=== PATIENT | male | born 1940 | race Caucasian/White ===

== ENCOUNTER 2018-04-11 21:10 | Emergency (ER) | payer MEDICARE, OTHER ==
[~2018-04-11] VITALS: Ht 170.2 cm; Wt 86.2 kg
[~2018-04-11 21:10] MED LIST: DPAS20025 PO; EXEN2PEN SQ; GLYB1TAB12; LOSA25TA41 PO; PIOG45TA
[2018-04-11 21:29] LABS: BASOPHILS # (AUTO) 0.1 10^3/uL (0.0-0.1); BASOPHILS % (AUTO) 1 % (0-10); EOSINOPHILS # (AUTO) 0.2 10^3/uL (0.0-0.3); EOSINOPHILS % (AUTO) 3 % (0-10); HEMATOCRIT 46 % (40-54); HEMOGLOBIN 14.9 G/DL (13.3-17.7); LYMPHOCYTES # (AUTO) 2.4 X 10^3 (1.0-4.0); LYMPHOCYTES % (AUTO) 36 % (12-44); MEAN CORPUSCULAR HEMOGLOBIN 32 PG (25-34); MEAN CORPUSCULAR HGB CONC 33 G/DL (32-36); MEAN CORPUSCULAR VOLUME 98 FL (80-99); MEAN PLATELET VOLUME 10.9 FL (7.4-10.4); MONOCYTES # (AUTO) 0.7 X 10^3 (0.0-1.0); MONOCYTES % (AUTO) 11 % (0-12); NEUTROPHILS # (AUTO) 3.3 X 10^3 (1.8-7.8); NEUTROPHILS % (AUTO) 49 % (42-75); PLATELET COUNT 173 10^3/uL (130-400); WHITE BLOOD COUNT 6.6 10^3/uL (4.3-11.0)
[2018-04-11 21:37] LABS: FIBRIN DEGRADATION PRODUCTS 1.16 UG/ML (0.00-0.49); PROTHROMBIN TIME PATIENT 12.9 SEC (12.2-14.7)
[2018-04-11 21:42] LABS: ALANINE AMINOTRANSFERASE 13 U/L (0-55); ALBUMIN 4.4 GM/DL (3.2-4.5); ALKALINE PHOSPHATASE 89 U/L (40-136); BILIRUBIN,TOTAL 0.4 MG/DL (0.1-1.0); BUN/CREATININE RATIO 12; CALCIUM 9.5 MG/DL (8.5-10.1); CARBON DIOXIDE 24 MMOL/L (21-32); CHLORIDE 99 MMOL/L (98-107); CREATININE SERUM 1.45 MG/DL (0.60-1.30); GFR ESTIMATED 47; GLUCOSE 349 MG/DL (70-105); POTASSIUM 4.4 MMOL/L (3.6-5.0); SODIUM 135 MMOL/L (135-145); TOTAL PROTEIN 7.9 GM/DL (6.4-8.2)
--- NOTE | 2018-04-11 21:43 | Diagnostic Imaging Report ---
PROCEDURE: CT head without contrast. Rule out stroke. TECHNIQUE: Multiple contiguous axial images were obtained through the brain without the use of intravenous contrast. INDICATION: Slurred speech. COMPARISON: None. FINDINGS: There are intracranial atherosclerotic vascular calcifications, posteriorly and anteriorly. No findings of focal edema. No hemorrhage. No evidence for elevated intracranial pressures. There are no abnormal extra-axial fluid collections. There is chronic white matter disease and old left basal ganglier lacunar infarcts. No evidence for elevated intracranial pressures. IMPRESSION: No hemorrhage or apparent edema. Chronic senescent changes with atrophy, white matter disease, parenchymal calcifications and old lacunar infarcts; however, no acute appearing abnormality identified. Dictated by: Dictated on workstation # [id number]
[2018-04-11] MEDS ORDERED: NS IV 1000 ML 1,000 ML IV ONE (21:53)
--- NOTE | 2018-04-11 21:54 | Diagnostic Imaging Report ---
INDICATION: Slurred speech. FINDINGS: There is some prominence of interstitial lung markings and mild air trapping as chronic finding. The possibility of a developing right basilar infiltrate could not be excluded in the appropriate scenario. No vascular congestion or failure pattern. IMPRESSION: Likely chronic prominence of interstitial lung markings with subtle possible developing right basilar infiltrate not excluded. No failure. Dictated by: Dictated on workstation # [id number]
[2018-04-11] MEDS ORDERED: inSUlin (REGULAR) HUMAN 1 UNIT/0.01 ML (CHARGE PER UNIT) IV ONE (22:00)
[2018-04-11] MEDS ORDERED: NS 100 ML (IVPB) BAG IV ONE (22:15)
[2018-04-11] MEDS ORDERED: HOLD METFORMIN - RECEIVED CONTRAST 20 ML VIAL IV SCH (22:15)
[2018-04-11] MEDS ORDERED: IOHEXOL 350 MG/ML 100 ML (OMNIPAQUE 350) VIAL IV ONE (22:15)
[2018-04-11 23:09] LABS: BILIRUBIN,URINE NEGATIVE (NEGATIVE); CLARITY,URINE CLEAR; COLOR,URINE YELLOW; GLUCOSE, URINE (UA) 4+ (NEGATIVE); KETONES,URINE NEGATIVE (NEGATIVE); LEUKOCYTE ESTERASE ,URINE NEGATIVE (NEGATIVE); NITRITE,URINE NEGATIVE (NEGATIVE); PH,URINE 5 (5-9); PROTEIN,URINE 1+ (NEGATIVE); UROBILINOGEN,URINE NORMAL (NORMAL)
[2018-04-11 23:15] LABS: BACTERIA,URINE NEGATIVE /HPF; WBC,URINE RARE /HPF
--- NOTE | 2018-04-11 23:25 | NUR ---
REPORT GIVEN TO RANDY BO FROM [facility]. ROOM #[id number] UPON ARRIVAL TO [facility].
[2018-04-12 00:40] VITALS: BP 140/108
--- NOTE | 2018-04-12 07:40 | Diagnostic Imaging Report ---
PROCEDURE: CT angiography of the head and CT angiography of the neck with and without contrast. TECHNIQUE: Contiguous noncontrast images were obtained from the skull base through the vertex. After intravenous contrast administration, helical CT angiography of the neck was performed. Source data was reformatted into multiple MIP projections. Delayed post contrast acquisition was also obtained. INDICATION: Slurred speech. COMPARISON: None FINDINGS: This examination is markedly suboptimal owing to timing of the contrast bolus. This is most pronounced at the level the of the aortic arch and proximal takeoff of the great vessels. CTA NECK: Aorta: Aortic arch markedly limited. There is normal three-vessel branching pattern. There is a tortuous course of the brachiocephalic trunk. Right Common/Internal/External Carotid Artery: Right common carotid artery appearing relatively unremarkable given limitations. There is moderate severity calcification at the bifurcation. This results in moderate stenosis. Quantification somewhat indeterminate. Tortuous appearance of the right internal carotid artery throughout the neck. Definitive occlusion or dissection does not appear to be suggested. The external carotid artery appearing generally unremarkable. Left Common/Internal/External Carotid Artery: Left common carotid artery appearing given the significant limitations. The extracranial segments of the internal carotid artery without significant stenosis. There is mild to moderate calcification about the carotid bifurcation. External carotid arteries appearing patent and unremarkable. Vertebral arteries: Does appear to be mild to moderate narrowing at the B2 segment of the right vertebral artery. This may be owing to degenerative changes at C5-C6 level. Definitive dissection or occlusion is not suggested. Left vertebral artery generally unremarkable. Non-vascular: No concerning cervical lymphadenopathy. The airway is patent. CTA HEAD: Anterior Circulation: There is significant calcification of the intracranial internal carotid arteries. On the right there does appear to be a rather severe stenosis of the right supraclinoid ICA. Less severe narrowing of the left supraclinoid ICA. The anterior cerebral arteries demonstrate suggestion that the left anterior communicating artery feeds both right and left anterior cerebral arteries. No definitive evidence for occlusion or significant stenosis. No aneurysmal formation. The bilateral middle cerebral arteries are patent and without stenosis. Posterior Circulation: There is severe stenosis owing to calcification of the distal, B4 segment of the right vertebral artery. Left vertebral artery appearing unremarkable. The basilar artery appears unremarkable. The posterior cerebral arteries are patent. Post Contrast Head: No concerning enhancement on delayed post-contrast imaging. IMPRESSION: 1. There is what appears to be less severe stenosis of the right supraclinoid ICA and less severe narrowing at the left ICA. 2. Severe stenosis within the distal the segment of the right vertebral artery. 3. There does appear to be at least moderate stenosis of the proximal right internal carotid artery at the level of the bifurcation within the neck. 4. Mild to moderate stenosis at the proximal B2 segment right vertebral artery. 5. Overall assessment particularly at the aortic arch and proximal takeoff of the great vessels is very limited in evaluation given limited, poor opacification. A preliminary report was provided by [employer]. Dictated by: Dictated on workstation # [id number]
--- NOTE | 2018-05-14 09:19 | ED Neurological Problem ---
General Chief Complaint: Neuro-Stroke Like Symptoms Stated Complaint: SLURRED SPEECH Nursing Triage Note: PT AM TO ROOM #6 W/O DIFFICULTY. A&OX4. C/O SPEECH DIFFICULTIES. PT REPORTS SINCE BEFORE APPROX 1700 ON THIS DAY, HE BEGAN TO HAVE DIFFICULTY SPEAKING. DENIES PAIN. DENIES NUMBNESS OR TINGLING TO EXTREMITIES. PT REPORTS HX STROKE 10 YEARS AGO. INITIAL NIH STROKE SCALE SCORE OF 2. Nursing Sepsis Screen: No Definite Risk Source: patient, spouse History of Present Illness Date Seen by Provider: Apr 11, 2018 Time Seen by Provider: 21:20 Initial Comments PT ARRIVES VIA POV FROM HOME PT AND REPORT THAT PT HAS HAD SLURRED SPEECH SINCE SOMETIME THIS AFTERNOON --SOMETIME BEFORE 1700, BUT CANNOT STATE MORE SPECIFICALLY HOW LONG AGO IT STARTED. PT HAS HISTORY OF CVA IN 2008--HAD RIGHT SIDE WEAKNESS AT THAT TIME, WHICH HAS SINCE RESOLVED. PT HAS HAD LEFT CAROTID ENDARTERECTOMY PT HAS A HISTORY OF TIA'S HAS NOT SEEN A NEUROLOGIST SINCE 2008 NO HEADACHE NO VISION CHANGES NO DIZZINESS NO NAUSEA/VOMITING NO PARESTHESIAS OR MOTOR DEFICITS NO PROBLEMS EATING AT NOON OR SWALLOWING LIQUIDS. PT DOES REPORT INCREASED ANXIETY/STRESS PCP: DR. NATHAN Allergies and Home Medications Allergies Coded Allergies: No Known Drug Allergies (Verified , 07/14/08) Home Medications Dipyridamole/Aspirin 1 Ea Cap, 1 CAP PO DAILY, (Reported) Exenatide Microspheres 2 Mg/0.65 Ml Pen.injctr, 2 MG SQ WEEK, (Reported) Patient Home Medication List Home Medication List Reviewed: Yes Review of Systems Review of Systems Constitutional: no symptoms reported Eyes: No Symptoms Reported Ears, Nose, Mouth, Throat: no symptoms reported Respiratory: no symptoms reported Cardiovascular: no symptoms reported Gastrointestinal: no symptoms reported Genitourinary: no symptoms reported Musculoskeletal: no symptoms reported Skin: no symptoms reported Psychiatric/Neurological: See HPI, Anxiety; Denies Cognitive Dysfunction, Denies Headache, Denies Numbness, Denies Tingling, Denies Tonic Clonic Seizures , Denies Weakness; Other (PER HPI) Endocrine: No Symptoms Reported Hematologic/Lymphatic: No Symptoms Reported Past Tcivvdz-Maqtyb-Rewxic Hx Patient Social History Alcohol Use: Denies Use Recreational Drug Use: No Smoking Status: Never a Smoker 2nd Hand Smoke Exposure: No Recent Foreign Travel: No Contact w/Someone Who Travel: No Recent Infectious Disease Expo: No Recent Hopitalizations: Yes Past Medical History Surgeries: Yes (LEFT CAROTID ENDARTERECTOMY) Vascular Surgery Respiratory: No Cardiac: Yes High Cholesterol Neurological: Yes (CVA 2009 WITH RIGHT SIDE WEAKNESS-- RESOLVED; S/P LEFT CAROTID ENDARTERECTOMY) Stroke Genitourinary: No Gastrointestinal: No Musculoskeletal: No Endocrine: Yes Diabetes, Non-Insulin dep HEENT: No Cancer: No Psychosocial: No Integumentary: No Blood Disorders: No Physical Exam Vital Signs Capillary Refill : Less Than 3 Seconds Height, Weight, BMI Height: 5'7.00" Weight: 190lbs. 0.0oz. 86.077803wf; 30.4 BMI Method:Stated General Appearance: WD/WN, no apparent distress HEENT: PERRL/EOMI, other Neck: non-tender, full range of motion, supple, normal inspection; No carotid bruit Respiratory: normal breath sounds, no respiratory distress, no accessory muscle use Cardiovascular: normal peripheral pulses, regular rate, rhythm, no edema, no JVD, no murmur, extra beats (OCCASIONAL ECTOPY) Peripheral Pulses: 2+ Dorsalis Pedis (R), 2+ Left Dors-Pedis (L) Gastrointestinal: normal bowel sounds, non tender Back: normal inspection Extremities: normal inspection, no pedal edema, no calf tenderness, normal capillary refill Neurologic/Psychiatric: alert, oriented x 3, facial droop (MILD RIGHT FACIAL WEAKNESS), other (SPEECH SLIGHTLY SLURRED/THICK-TONGUED. ) Crainal Nerves: normal hearing, PERRL, abnormal speech, facial droop Coordination/Gait: normal finger to nose, normal gait, negative Romberg's sign Motor/Sensory: no pronator drift Skin: normal color, warm/dry Stroke NIH Stroke Scale Assessment Level of Consciousness: 0=Alert (0), Level of Consciousness-Questions: 0= Answers both month/age (0), LOC Commands: 0=Performs both tasks (0), Visual Val[place]: 0=No visual loss (0), Facial Movement (Facial Paresis): 1=Minor paralysis (1), Motor Function-Arms Right: 0=No drift (0), Motor Function-Arms Left: 0=No drift (0), Motor Function-Legs Right: 0=No drift (0), Motor Function- Legs Left: 0=No drift (0), Limb Ataxia: 0=Absent (0), Sensory: 0=Normal:no loss (0), Best Language: 1=Mild to moderat aphasia (1), Dysarthria: 1=Mild to moderate loss (1), Extinction & Inattention: 0=No abnormality (0), Total: 3 Stroke Thrombolytic Exclusion Age 18 or Over: Yes Acute intenal hemorrhage: No History of CVA: Yes Uncontrolled Coagulation Defec: No Intracranial Hemorrhage: No Severe Hypertension: Yes GI or Bleed: No Subarachnoid Hemorrhage: No Intracranial Neoplasm/Aneurysm: No Oral Anticoagulants: Yes Surgery or Trauma: No Puncture of Non-Compressible V: No Recent CPR: No Diabetic Hemorrhagic Retinopat: No Organ Biopsy: No Glucose: No Significant Hepatic Dysfunctio: No NIH Stoke Scale >22: No Bacterial Endocarditis: No Pericarditis: No Improving Symptoms: No Platelets: No TPA Contraindication: No IV - TPa Received IV - TPa Procedure Performed?: No (ONSET OF SYMPTOMS > 4 HOURS, WITH ONLY MILD SPEECH DIFFICULTY WITH NIH OF 3) Progress/Results/Core Measures Results/Orders Lab Results Laboratory Tests Test 04/11/18 21:19 04/11/18 23:02 Range/Units White Blood Count 6.6 4.3-11.0 10^3/uL Red Blood Count 4.64 4.35-5.85 10^6/uL Hemoglobin 14.9 13.3-17.7 G/DL Hematocrit 46 40-54 % Mean Corpuscular Volume 98 80-99 FL Mean Corpuscular Hemoglobin 32 25-34 PG Mean Corpuscular Hemoglobin Concent 33 32-36 G/DL Red Cell Distribution Width 12.0 10.0-14.5 % Platelet Count 173 130-400 10^3/uL Mean Platelet Volume 10.9 H 7.4-10.4 FL Neutrophils (%) (Auto) 49 42-75 % Lymphocytes (%) (Auto) 36 12-44 % Monocytes (%) (Auto) 11 0-12 % Eosinophils (%) (Auto) 3 0-10 % Basophils (%) (Auto) 1 0-10 % Neutrophils # (Auto) 3.3 1.8-7.8 X 10^3 Lymphocytes # (Auto) 2.4 1.0-4.0 X 10^3 Monocytes # (Auto) 0.7 0.0-1.0 X 10^3 Eosinophils # (Auto) 0.2 0.0-0.3 10^3/uL Basophils # (Auto) 0.1 0.0-0.1 10^3/uL Prothrombin Time 12.9 12.2-14.7 SEC INR Comment 1.0 0.8-1.4 Activated Partial Thromboplast Time 29 24-35 SEC D-Dimer 1.16 H 0.00-0.49 UG/ML Sodium Level 135 135-145 MMOL/L Potassium Level 4.4 3.6-5.0 MMOL/L Chloride Level 99 98-107 MMOL/L Carbon Dioxide Level 24 21-32 MMOL/L Anion Gap 12 5-14 MMOL/L Blood Urea Nitrogen 18 7-18 MG/DL Creatinine 1.45 H 0.60-1.30 MG/DL Estimat Glomerular Filtration Rate 47 BUN/Creatinine Ratio 12 Glucose Level 349 H 70-105 MG/DL Calcium Level 9.5 8.5-10.1 MG/DL Corrected Calcium 9.2 8.5-10.1 MG/DL Total Bilirubin 0.4 0.1-1.0 MG/DL Aspartate Amino Transf (AST/SGOT) 19 5-34 U/L Alanine Aminotransferase (ALT/SGPT) 13 0-55 U/L Alkaline Phosphatase 89 40-136 U/L Troponin I < 0.028 <0.028 NG/ML Total Protein 7.9 6.4-8.2 GM/DL Albumin 4.4 3.2-4.5 GM/DL Urine Color YELLOW Urine Clarity CLEAR Urine pH 5 5-9 Urine Specific [place] 1.010 L 1.016-1.022 Urine Protein 1+ H NEGATIVE Urine Glucose (UA) 4+ H NEGATIVE Urine Ketones NEGATIVE NEGATIVE Urine Nitrite NEGATIVE NEGATIVE Urine Bilirubin NEGATIVE NEGATIVE Urine Urobilinogen NORMAL NORMAL MG/DL Urine Leukocyte Esterase NEGATIVE NEGATIVE Urine RBC (Auto) NEGATIVE NEGATIVE Urine RBC NONE /HPF Urine WBC RARE /HPF Urine Crystals NONE /LPF Urine Bacteria NEGATIVE /HPF Urine Casts NONE /LPF Urine Mucus NEGATIVE /LPF Urine Culture Indicated NO My Orders Orders - DERIAN MARTIN DO Cbc With Automated Diff (04/11/18 21:22) Protime With Inr (04/11/18 21:22) Partial Thromboplastin Time (04/11/18 21:22) Comprehensive Metabolic Panel (04/11/18 21:22) Fibrin Degradation Products (04/11/18 21:22) Troponin I (04/11/18 21:22) Ua Culture If Indicated (04/11/18 21:22) Chest 1 View, Ap/Pa Only (04/11/18 21:22) Ekg Tracing (04/11/18 21:22) Accucheck Stat ONCE (04/11/18 21:22) Saline Lock/Iv-Start (04/11/18 21:22) Saline Lock/Iv-Start (04/11/18 21:22) Vital Signs Stroke Patient Q15M (04/11/18 21:22) Ct Head Wo-R/O Stroke (04/11/18 21:22) O2 (04/11/18 21:22) Intake & Output 06,14,22 (04/11/18 21:22) Monitor-Rhythm Ecg Trace Only (04/11/18 21:22) Dysphagia Screening Tool (04/11/18 21:22) Post Thrombolytic Adminstratio (04/11/18 21:22) Ct Angio Head/Neck (04/11/18 21:48) Insulin (Regular) Human (Humulin R (Per (04/11/18 22:00) Saline Lock/Iv-Start (04/11/18 21:53) Ns Iv 1000 Ml (Sodium Chloride 0.9%) (04/11/18 21:53) Iohexol Injection (Omnipaque 350 Mg/Ml 1 (04/11/18 22:15) Received Contrast (Contrast Received) (04/11/18 22:15) Ns (Ivpb) (Sodium Chloride 0.9% Ivpb Bag (04/11/18 22:15) Iv Push Tester Armature Or Fields Ed (04/11/18 ) Blood Pressure Mean: 119 iStat Bedside Lab Testing Sodium (Na): 136.00 Potassium (K): 4.50 Chloride (CI): 97.00 TCO2: 28.00 Glucose (Glu): 327.00 Urea Nitrogen (BUN)/Urea: 21.00 Creatinine (Crea): 1.10 Anion Gap*: 17.00 FSBG Bedside Testing Finger Stick Blood Glucose: 327 Blood Glucose Action Taken: DR. MARTIN NOTIFIED. Progress Progress Note : Progress Note SPEECH SLIGHTLY MORE SLURRED ON RETURN FROM CT, PT MORE ANXIOUS AND MULTITUDE OF FAMILY MEMBERS HERE AND ALL IN ROOM. Initial ECG Impression Date: Apr 11, 2018 Initial ECG Impression Time: 21:52 Initial ECG Rate: 80 Initial ECG Rhythm: Normal Sinus (MULTIFOCAL PVC'S. ( ALSO WITH PAC'S ON TELEMETRY) ; RBBB) Diagnostic Imaging Comments CXR--INTERSTITIAL LUNG MARKINGS, WITH POSSIBLE RIGHT BASILAR INFILTRATE PER RADIOLOGIST REPORT AT 2235 CT HEAD--NO ACUTE PROCESS, PER RADIOLOGIST REPORT @ 2148 CT ANGIOGRAM HEAD/NECK--HIGH GRADE STENOSIS RIGHT ICA AND RIGHT DISTAL VERTEBRAL ARTERIES, NO COMPLETE OCCLUSION.MODERATE DISEASE IN OTHER VESSELS PER [facility] RADIOLOGIST VIA PHONE @ [phone] AND VIA FAX @ [phone] AND [phone] Reviewed: Reviewed by Me, Discussed w/Radiologist Departure Communication (Admissions) 2300--CALLED [facility]--SPOKE WITH DR. 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 ACCEPTS PT FOR ADMIT. ADVISES NOT TO TREAT ELEVATED BP AT THIS TIME. Impression Primary Impression: Uncontrolled hypertension Additional Impressions: ACUTE CVA WITH RIGHT FACIAL WEAKNESS AND SLURRED SPEECH Diabetes type 2, uncontrolled Renal insufficiency Disposition: 02 XFER SHT-TRM HOSP Condition: Stable Transfer Transfer Facility: Method of Transfer: EMS Departure-Patient Inst. Referrals: VIC NATHAN MD (PCP) Primary Care Physician DERIAN MARTIN DO May 14, 2018 09:19
== END 2018-04-12 00:40 | disposition short-term general hospital (02) ==
LOC: EDUNIT# 21:10 → ER 21:11
DX: I63.9 Cerebral infarction, unspecified (principal); R47.81 Slurred speech; R29.810 Facial weakness; I10 Essential (primary) hypertension; E11.9 Type 2 diabetes mellitus without complications; N28.9 Disorder of kidney and ureter, unspecified; F41.9 Anxiety disorder, unspecified; E78.00 Pure hypercholesterolemia, unspecified; Z79.82 Long term (current) use of aspirin; Z86.73 Personal history of transient ischemic attack (TIA), and cerebral infarction without residual deficits; Z90.89 Acquired absence of other organs
CPT/HCPCS: 36415; 70450; 70496; 70498; 71045; 80053; 81000; 84484; 85025; 85379; 85610; 85730; 93005; 93041; 96374

== ENCOUNTER 2018-06-21 19:39 | Outpatient (CLI) | payer MEDICARE, OTHER | END 2018-06-22 06:40 | disposition home or self-care (01) | LOC: SLEEP 19:39 | PROVIDERS: ATTEND Family Medicine | DX: G47.33 Obstructive sleep apnea (adult) (pediatric) (principal); G47.10 Hypersomnia, unspecified; I10 Essential (primary) hypertension; R06.83 Snoring; Z86.73 Personal history of transient ischemic attack (TIA), and cerebral infarction without residual deficits | CPT/HCPCS: 95811 ==

== ENCOUNTER 2018-09-16 12:58 | Outpatient (RCR) | payer MEDICARE, OTHER ==
[~2018-09-16] VITALS: Ht 167.6 cm; Wt 83.9 kg
[2018-11-27] MEDS ORDERED: CLOP75TA28 PO (08:21)
[2018-11-27] MEDS ORDERED: CARV6.25 PO (08:21)
[2018-11-27] MEDS ORDERED: ATOR80TA76 PO (08:21)
[2018-11-27] MEDS ORDERED: INSU300I SQ (08:21)
[2018-11-27] MEDS ORDERED: LISI-556 PO (08:21)
[2018-11-27] MEDS ORDERED: HYDR25TA4 PO (08:21)
[2018-11-27] MEDS ORDERED: LOSA25TA41 PO (08:21)
[2018-11-27] MEDS ORDERED: INSU300I3 SQ (09:05)
[2018-11-27] MEDS ORDERED: ASPI-983 PO (09:06)
[2018-11-27] MEDS ORDERED: SACU1TAB PO (09:53)
== END 2018-12-15 | disposition home or self-care (01) ==
LOC: DSME 12:58
PROVIDERS: ATTEND Family Medicine
DX: E11.65 Type 2 diabetes mellitus with hyperglycemia (principal); I10 Essential (primary) hypertension

== ENCOUNTER → 2018-11-11 | Outpatient (CLI) | payer MEDICARE, OTHER ==
[~2018-11-11] MED LIST changes: +CATHETER FLUSH 10 ML SYR IV PRN; +REGADENOSON 0.4 MG/5 ML SYR (LEXISCAN) IV ONE
[2018-11-11 09:27] VITALS: BP 132/94
[2018-11-11 09:28] VITALS: BP 146/81
--- NOTE | 2018-11-11 19:12 | STRESS TEST ---
DATE OF SERVICE: 11/11/2018 LEXISCAN MYOVIEW STRESS TREST REPORT REFERRING PHYSICIAN: Katiana Tierney MD Baseline heart rate is 77, baseline blood pressure is sinus rhythm with frequent premature ventricular contractions. In summary, the patient was injected with 10.22 mCi of technetium-99 Myoview and the resting images were obtained. Then, the patient received 0.4 mg of Lexiscan followed by 29.2 mCi of technetium-99 Myoview. Throughout the test, there were no EKG changes. Continued to have frequent PVCs. The resting and stress images were reviewed and compared in the short axis, horizontal long axis, and vertical long axis views. Review of the images showed diaphragmatic attenuation with decreased uptake involving the mid to apical inferior wall and inferolateral wall with no significant reversibility. SSS is 6, SDS 1, TID value 1.04. No gated images were done due to the frequent PVCs. SUMMARY: 1. The patient tolerated Lexiscan well. 2. Frequent PVCs and ventricular bigeminy noted throughout test. 3. Diaphragmatic attenuation with fixed defect involving the mid to apical inferior wall and inferolateral wall. 4. No gated images were done due to the irregular heartbeat. Job ID: [id number] DocumentID: [id number] Dictated Date: 11/11/2018 16:43:22 [employer] Developer Date: 11/11/2018 19:11:51 Dictated By: NANCY SILVERMAN MD
== END ==
LOC: CARD 07:44
PROVIDERS: ATTEND Internal Medicine Cardiovascular Disease
DX: I10 Essential (primary) hypertension (principal); I49.3 Ventricular premature depolarization; E78.2 Mixed hyperlipidemia; E11.9 Type 2 diabetes mellitus without complications
CPT/HCPCS: 93306

== ENCOUNTER 2018-11-27 06:49 | Day surgery (SDC) | payer MEDICARE, OTHER ==
[~2018-11-27] VITALS: Ht 168.9 cm; Wt 86.6 kg
[2018-11-27] VITALS (11 sets, daily range): BP systolic 129–164; BP diastolic 54–90
[~2018-11-27 06:49] MED LIST changes: -CATHETER FLUSH 10 ML SYR IV PRN; -REGADENOSON 0.4 MG/5 ML SYR (LEXISCAN) IV ONE
[2018-11-27] MEDS ORDERED: HEParin (CATH LAB) 2,000 ML IV ONE (06:57)
[2018-11-27] MEDS ORDERED: LIDOCAINE 1% INJ 20 ML 20 ML VIAL ONE (06:57)
[2018-11-27] MEDS ORDERED: NS IV 1000 ML 1,000 ML ONE (06:57)
[2018-11-27] MEDS ORDERED: NS IV 1000 ML 1,000 ML IV SCH ×2 (07:00→09:45)
[2018-11-27 07:36] LABS: HEMOGLOBIN 14.5 G/DL (13.3-17.7); MEAN PLATELET VOLUME 11.1 FL (7.4-10.4); RED CELL DISTRIBUTION WIDTH 12.6 % (10.0-14.5); WHITE BLOOD COUNT 7.2 10^3/uL (4.3-11.0)
[2018-11-27 07:37] LABS: BILIRUBIN,URINE NEGATIVE (NEGATIVE); CLARITY,URINE CLEAR; COLOR,URINE YELLOW; GLUCOSE, URINE (UA) 2+ (NEGATIVE); KETONES,URINE NEGATIVE (NEGATIVE); LEUKOCYTE ESTERASE ,URINE NEGATIVE (NEGATIVE); NITRITE,URINE NEGATIVE (NEGATIVE); PH,URINE 5 (5-9); PROTEIN,URINE 2+ (NEGATIVE)
[2018-11-27 07:44] LABS: BACTERIA,URINE NEGATIVE /HPF; RBC,URINE RARE /HPF
[2018-11-27 07:45] LABS: SQUAMOUS EPITHELIAL CELL,UR 0-2 /HPF
[2018-11-27 07:54] LABS: ALBUMIN 4.2 GM/DL (3.2-4.5); BILIRUBIN,TOTAL 0.9 MG/DL (0.1-1.0); CALCIUM 9.2 MG/DL (8.5-10.1); CREATININE SERUM 1.19 MG/DL (0.60-1.30); POTASSIUM 4.5 MMOL/L (3.6-5.0); TOTAL PROTEIN 7.7 GM/DL (6.4-8.2)
[2018-11-27] MEDS ORDERED: INSU300I SQ (08:21)
[2018-11-27] MEDS ORDERED: LISI-556 PO (08:21)
[2018-11-27] MEDS ORDERED: CLOP75TA28 PO (08:21)
[2018-11-27] MEDS ORDERED: ATOR80TA76 PO (08:21)
[2018-11-27] MEDS ORDERED: LOSA25TA41 PO (08:21)
[2018-11-27] MEDS ORDERED: CARV6.25 PO (08:21)
[2018-11-27] MEDS ORDERED: HYDR25TA4 PO (08:21)
--- NOTE | 2018-11-27 08:23 | Diagnostic Imaging Report ---
INDICATION: Pre-heart catheterization. TIME OF EXAM: 7:38 AM Correlation is made with prior chest from 04/11/2018. FINDINGS: Monitoring devices overlie the chest. The heart is enlarged. Lungs are clear. There is no infiltrate or failure. No effusion or pneumothorax seen. IMPRESSION: No acute cardiopulmonary process is detected. Dictated by: Dictated on workstation # [id number]
[2018-11-27] MEDS ORDERED: INSU300I3 SQ (09:05)
[2018-11-27] MEDS ORDERED: fentaNYL INJECTION 100 MCG/2 ML AMP ONE (09:06)
[2018-11-27] MEDS ORDERED: MIDAZOLAM 5 MG/5 ML (VERSED) VIAL ONE (09:06)
[2018-11-27] MEDS ORDERED: ASPI-983 PO (09:06)
--- NOTE | 2018-11-27 09:06 | Cardiac Procedure Note-CS/ASA ---
Pre-Procedure Note Pre-Op Procedure Note H&P Reviewed The H&P was reviewed, patient examined and no changes noted. Date H&P Reviewed: Nov 27, 2018 Time H&P Reviewed: 09:06 Conscious Sedation Pre-Proced Time 09:06 ASA Score 3 For ASA 3 and 4: Consider anesthesia and medical clearance. Also, for patients with a history of failed moderate sedation consider anesthesia. Airway Lungs Heart ASA score ASA 1: a normal healthy patient ASA 2: a patient with a mild systemic disease (mid diabetes, controlled hypertension, obesity x ASA 3: a patient with a severe systemic disease that limits activity (angina, COPD, prior Myocardial infarction) ASA 4: a patient with an incapacitating disease that is a constant threat to life (CHF, renal failure) ASA 5: a moribund patient not expected to survive 24 hrs. (ruptured aneurysm) ASA 6: a declared brain- patient whose organs are being harvested. For emergent operations, add the letter E after the classification Mallampati Classification Grade 3 Sedation Plan Analgesia, Amnesia, Plan communicated to team members, Discussed options with patient/fam, Discussed risks with patient/fam The patient is an appropriate candidate to undergo the planned procedure, sedation, and anesthesia. The patient immediately re-assessed prior to indication. NANCY SILVERMAN MD Nov 27, 2018 09:06
--- NOTE | 2018-11-27 09:06 | NUR ---
SPOKE WITH PT WELL CALLING [facility] TO COMPLETE THE MED REC. PT WAS UNSURE HOW HE TAKES HIS MEDS (WAS UNSURE ON SOME NAMES) AND INDICATED HE "TOOK THEM LIKE THE BOTTLE TOLD HIM TO" - DUE TO THESE REASONS THE MED REC IS COMPLETED TO THE BEST OF MY ABILITY. THE FOLLOWING ARE FILL DATES FROM THE PHARMACY: 10-10-2018 JORDY # 6 11-08-2018 LISINOPRIL #90/90DS 11-08-2018 ATORVASTATIN #90/90DS 11-08-2018 ASPIRIN #90/90DS 11-08-2018 CLOPIDOGREL #90/90 11-08-2018 CARVEDILOL #90/90DS 11-14-2018 HCTZ #30/30DS 11-14-2018 LOSARTAN #30/30DS
[2018-11-27] MEDS ORDERED: PATIENT MAY USE OWN MEDS, ALL PO SCH (09:45)
--- NOTE | 2018-11-27 09:47 | Discharge Inst-Post CATH ---
Discharge Inst-CATH/EP Problems Reviewed?: Yes Post Cardiac Cath/EP D/C Inst Follow Up/Plan Appointment with Dr. SILVERMAN's office in 2-4 weeks <b>CARDIAC CATH/EP PROCEDURE DISCHARGE INSTRUCTIONS</b> ACTIVITY * Go Home directly and rest. * Limit activity of the leg (or wrist if it was used) for 7 days including aerobics, swimming, jogging, bicycling, etc. * Restrict stair-climbing for 7 days if possible, if not, climb up with your non-cath leg, then bring together on the same step. * Avoid lifting, pushing, pulling or excessive movement of the affected extremity for 7 days. * Customary sexual activity may be resumed after 2 days-use caution not to use a position that strains or causes pain to the affected extremity. * No driving for 24 hours. * NO SMOKING. * Avoid straining for bowel movements for 7 days. * Gentle walking on level ground is allowed. * Returning to work will depend on the type of procedure and the results. Your doctor will discuss this with you. CALL YOUR DOCTOR FOR ANY OF THE FOLLOWING: *If bleeding from the puncture site occurs- Apply gentle pressure to site with clean cloth and call your doctor or EMS. * If a knot or lump forms under the skin, increases in size, or causes pain. * If bruising appears to be worsening or moving further down your leg instead of disappearing. * Temperature above 101 F. CARE OF YOUR GROIN INCISION; * Bruising or purple discoloration of the skin near the puncture site is common. * You may shower only, no bathtub bathing for 5 days. Be careful to avoid slipping as your leg may feel stiff. * If a closure device was used on your femoral artery, please see the attached guide regarding care of the device and your leg. * Leave dressing on FOR 24 hours. CARE OF YOUR WRIST INCISION; * Bruising or purple discoloration of the skin near the puncture site is common. * You may shower. * DO NOT submerge wrist. * Leave dressing on FOR 24 hours. NANCY SILVERMAN MD Nov 27, 2018 09:47
--- NOTE | 2018-11-27 09:52 | Cardiac Cath Report ---
Cardiac Cath Report Physician (s)/Cleaner Wall (s) Physician NANCY SILVERMAN MD Pre-Procedure Diagnosis Pre-Procedure Diagnosis: Coronary artery disease Post-Procedure Note Procedure Start Date: Nov 27, 2018 Name of Procedure: Left heart catheterization Left ventriculogram Aortic arch angiogram Findings/Procedure Note PROCEDURE NOTE: 78 years old gentleman with history of coronary artery disease, severe cardiomyopathy, history of CVA, carotid stenosis, scheduled for cardiac catheterization possible angioplasty and stenting in addition I will evaluate his aortic arch due to the carotid stenosis and the heavy calcification noted during the catheterization on his aortic arch and neck arteries. After explaining the procedure to the patient, all pros and cons were explained, all questions were answered. The patient signed the consent and then he was placed on the cardiac catheterization laboratory. Groin was prepped SL fashion local anesthesia was used. Sheath placed in the right femoral artery. Damien right and left catheter were used to access the coronary system. Pigtail was used to access the left ventricular cavity. Left ventriculogram was done Aortic arch angiogram was done At the end of the procedure the sheath was removed. Closure device was used FINDINGS: Hemodynamics LV 135/15 end-diastolic pressure of 15 Aorta 135/53 mean of 82 ANATOMY: Left Main has mild disease nonobstructive disease Left Anterior Descending has moderate ectasia in the proximal and midportion with slow flow Left Circumflex has mild ectasia in the midportion with slow flow Right Coronory Artery is heavily calcified with diffuse ectasia in the proximal and midportion with slow flow in the right coronary artery LV Gram is dilated with diffuse left ventricular hypokinesia with estimated ejection fraction 30 percent Aorta evaluation showed constipation and the aortic arch, no dissection or aneurysm, the right innominate and right carotid artery is heavily calcified and tortuous with [id number] disease, the left carotid artery is calcified with mild disease, the left subclavian artery is calcified with no obstructive disease CONCLUSION: 1. Diffuse coronary ectasia with slow flow in the coronary system overall with heavily calcified right coronary artery with no obstructive disease, small vessel disease 2. Dilated left ventricle with diffuse left ventricular hypokinesia with estimated ejection fraction 30 percent 3. Normal aortic arch, no dissection or aneurysm with heavy calcification and tortuosity in the neck arteries, mild to moderate disease in the right carotid artery, mild disease on the left carotid artery. DISCUSSION AND RECOMMENDATION: Medical therapy is recommended, continue to maximize medical therapy Anesthesia Type: Conscious Sedation Estimated blood loss (mL): 25 mm Contrast Amount: 56 mm Total Radiation Dose: 496 mGy Post-Procedure Diagnosis Post-operative diagnosis: Coronary artery disease Congestive heart failure, chronic compensated left ventricular systolic dysfunction, nonischemic cardiomyopathy Hypertension Hyperlipidemia NANCY SILVERMAN MD Nov 27, 2018 09:52
[2018-11-27] MEDS ORDERED: SACU1TAB PO (09:53)
== END 2018-11-27 14:40 | disposition home or self-care (01) ==
LOC: CATH 06:49 → SDC 10:03 → CATH 14:40
PROVIDERS: ATTEND Internal Medicine Cardiovascular Disease
DX: I25.10 Atherosclerotic heart disease of native coronary artery without angina pectoris (principal); I11.0 Hypertensive heart disease with heart failure; I50.22 Chronic systolic (congestive) heart failure; I42.9 Cardiomyopathy, unspecified; E11.9 Type 2 diabetes mellitus without complications; E78.2 Mixed hyperlipidemia; Z79.82 Long term (current) use of aspirin; Z79.899 Other long term (current) drug therapy; E78.1 Pure hyperglyceridemia; I49.3 Ventricular premature depolarization; Z86.73 Personal history of transient ischemic attack (TIA), and cerebral infarction without residual deficits; Z80.9 Family history of malignant neoplasm, unspecified; Z87.891 Personal history of nicotine dependence
CPT/HCPCS: 36221; 36415; 71045; 80053; 80061; 81000; 85027; 85610; 85730; 87081; 93458

== ENCOUNTER → 2019-02-10 | Outpatient (CLI) | payer MEDICARE, OTHER ==
[~2019-02-10] MED LIST changes: +ASPI-983 PO; +ATOR80TA76 PO; +CARV6.25 PO; +CLOP75TA28 PO; +HYDR25TA4 PO; +INSU300I SQ; +INSU300I3 SQ; +LISI-556 PO; +SACU1TAB PO
== END ==
LOC: CARD 08:58
PROVIDERS: ATTEND Physician Assistant
DX: I08.0 Rheumatic disorders of both mitral and aortic valves (principal); I49.3 Ventricular premature depolarization; E78.2 Mixed hyperlipidemia; I10 Essential (primary) hypertension; E11.9 Type 2 diabetes mellitus without complications
CPT/HCPCS: 93306

== ENCOUNTER → 2019-02-26 | Day surgery (SDC) | payer MEDICARE, OTHER ==
[~2019-02-26] VITALS: Ht 168 cm; Wt 86.6 kg
[~2019-02-26] MED LIST changes: +LIDOCAINE 1% INJ 20 ML 20 ML VIAL INJ ONE; +LIDOCAINE 1% INJ 20 ML 20 ML VIAL ONE; -SACU1TAB PO; +SACU1TAB2 PO
[2019-02-26 12:58] VITALS: BP 157/80
--- NOTE | 2019-02-26 13:48 | Implantation of Loop Monitor ---
Implant of Loop Monitior IMPLANTATION OF LOOP MONITOR REPORT DATE OF PROCEDURE: 02/26/19 PREOP DIAGNOSIS: Cryptogenic stroke POSTOP DIAGNOSIS: Cryptogenic stroke PROCEDURE DETAILS: The patient is a 79 male with history of paroxysmal atrial fibrillation requiring long-term surveillance. Therefore implantable loop recorder was discussed and agreed with the patient. Informed consent was taken. All risks and complications were discussed at length. The patient was draped and prepped in the usual sterile fashion. Local anesthesia was lidocaine, which was given in the substernal area close to the 4th intercostal space. Loop monitor [employer] [id number] was implanted according to the protocol. Steri-Strips were placed at the end of the procedure. There were no complications and the patient tolerated the procedure well. The device was interrogated with a voltage of. ANESTHESIA: Local anesthesia with lidocaine. COMPLICATIONS: None CONTRAST/FLUOROSCOPY: None CONCLUSION: Successful implantation of loop recorder with no complication FINAL DIAGNOSIS: Cryptogenic stroke Hypertension Hyperlipidemia NANCY SILVERMAN MD Feb 26, 2019 1:48 pm
[2019-02-26 14:00] VITALS: BP 140/70
== END ==
LOC: CATH 12:46
PROVIDERS: ATTEND Internal Medicine Cardiovascular Disease
DX: I63.9 Cerebral infarction, unspecified (principal); I25.10 Atherosclerotic heart disease of native coronary artery without angina pectoris; I11.0 Hypertensive heart disease with heart failure; I50.9 Heart failure, unspecified; I49.3 Ventricular premature depolarization; E78.1 Pure hyperglyceridemia; E78.2 Mixed hyperlipidemia; G47.30 Sleep apnea, unspecified; E11.9 Type 2 diabetes mellitus without complications; Z87.891 Personal history of nicotine dependence; Z79.02 Long term (current) use of antithrombotics/antiplatelets; Z79.899 Other long term (current) drug therapy; Z82.49 Family history of ischemic heart disease and other diseases of the circulatory system
CPT/HCPCS: 33285

== ENCOUNTER → 2019-03-27 | Outpatient (CLI) | payer MEDICARE, OTHER ==
[~2019-03-27] MED LIST changes: -LIDOCAINE 1% INJ 20 ML 20 ML VIAL INJ ONE; -LIDOCAINE 1% INJ 20 ML 20 ML VIAL ONE
--- NOTE | 2019-03-27 16:09 | Diagnostic Imaging Report ---
EXAMINATION: Abdomen 1 view HISTORY: CONSTIPATION COMPARISON: None available. FINDINGS: Bowel gas pattern is normal. No free air is seen. There are seminal vesicle calcifications. Degenerative disc disease is seen in the lumbar spine. Large stool burden is present in the right colon. IMPRESSION: 1. Normal bowel gas pattern without free air or obstruction. Dictated by: Dictated on workstation # [id number]
== END ==
LOC: RAD 15:40
PROVIDERS: ATTEND Nurse Practitioner Family
DX: K59.00 Constipation, unspecified (principal)
CPT/HCPCS: 74018

== ENCOUNTER 2019-04-14 05:49 | Outpatient (CLI) | payer MEDICARE, OTHER ==
[~2019-04-14] VITALS: Ht 170.2 cm; Wt 86.4 kg
[2019-04-14] MEDS ORDERED: LOSA25TA41 PO (14:31)
== END 2019-04-14 14:23 | disposition home or self-care (01) ==
LOC: PREOP 05:49
PROVIDERS: ATTEND Surgery
DX: Z01.818 Encounter for other preprocedural examination (principal)

== ENCOUNTER 2019-06-16 10:38 | Outpatient (RCR) | payer MEDICARE, OTHER ==
[2019-06-09] MEDS: FERRIC CARBOXYMALTOSE INJ 750 MG in NS (IVPB) 250 ML IV SCH (10:43)
[2019-06-09 10:45] VITALS: BP 170/79
[2019-06-16 10:30] VITALS: BP 164/71
[2019-06-16] MEDS: FERRIC CARBOXYMALTOSE INJ 750 MG in NS (IVPB) 250 ML IV SCH (11:10)
== END 2019-06-16 11:33 | disposition home or self-care (01) ==
LOC: SDC 10:38
PROVIDERS: ATTEND Nurse Practitioner Family
DX: D50.9 Iron deficiency anemia, unspecified (principal)
CPT/HCPCS: 96365

== ENCOUNTER → 2021-04-05 | Outpatient (CLI) | payer MEDICARE, OTHER ==
[~2021-04-05] VITALS: Ht 167 cm; Wt 85.4 kg
[~2021-04-05] MED LIST changes: +ASPI-1238 PO; -ASPI-983 PO; +IRON DEXTRAN 1,000 MG/NS 250 ML IVPB IV ONE; +IRON DEXTRAN 25 MG/NS 6.25 ML TOTAL VOLUME IV ONE; -LISI-556 PO; +LISI5TAB20 PO; +NS IV 500 ML 500 ML IV SCH
[2021-04-05 12:42] VITALS: BP 121/58
== END ==
LOC: SDC 11:45
PROVIDERS: ATTEND Family Medicine
DX: D50.9 Iron deficiency anemia, unspecified (principal)
CPT/HCPCS: 96365

== ENCOUNTER → 2021-04-21 | Outpatient (CLI) | payer MEDICARE, OTHER ==
[~2021-04-21] MED LIST changes: -IRON DEXTRAN 1,000 MG/NS 250 ML IVPB IV ONE; -IRON DEXTRAN 25 MG/NS 6.25 ML TOTAL VOLUME IV ONE; -NS IV 500 ML 500 ML IV SCH
== END ==
LOC: CARD 12:37
PROVIDERS: ATTEND Internal Medicine Cardiovascular Disease
DX: I08.0 Rheumatic disorders of both mitral and aortic valves (principal); I11.9 Hypertensive heart disease without heart failure; I25.10 Atherosclerotic heart disease of native coronary artery without angina pectoris
CPT/HCPCS: 93306

== ENCOUNTER → 2022-03-16 | Outpatient (CLI) | payer MEDICARE, OTHER | LOC: CARD 13:33 | PROVIDERS: ATTEND Internal Medicine Cardiovascular Disease | DX: I11.9 Hypertensive heart disease without heart failure (principal); I08.3 Combined rheumatic disorders of mitral, aortic and tricuspid valves; J90 Pleural effusion, not elsewhere classified; I25.10 Atherosclerotic heart disease of native coronary artery without angina pectoris | CPT/HCPCS: 93306 ==

== ENCOUNTER 2022-10-28 11:39 | Outpatient (RCR) | payer MEDICARE, OTHER ==
[~2022-10-28] VITALS: Ht 168 cm; Wt 83.9 kg
[2022-10-28 12:13] VITALS: BP 124/61
[2022-10-29 12:45] VITALS: BP 126/70
== END 2022-11-04 | disposition home or self-care (01) ==
LOC: 4THo 11:39
PROVIDERS: ATTEND Family Medicine
DX: S21.202A Unspecified open wound of left back wall of thorax without penetration into thoracic cavity, initial encounter (principal); X58.XXXA Exposure to other specified factors, initial encounter
CPT/HCPCS: G0463 ×4; 99211; 99212

== ENCOUNTER 2022-11-08 10:51 | Day surgery (SDC) | payer MEDICARE, OTHER ==
[~2022-11-08] VITALS: Ht 167.8 cm; Wt 79.2 kg
[2022-11-08] VITALS (12 sets, daily range): BP systolic 123–156; BP diastolic 55–86
[2022-11-08] MEDS ORDERED: LIDOCAINE 1% INJ 20 ML VIAL ONE (11:15)
[2022-11-08] MEDS ORDERED: NS IV 1000 ML 1,000 ML ONE (11:15)
[2022-11-08] MEDS ORDERED: HEParin (CATH LAB) 2,000 ML IV ONE (11:15)
--- NOTE | 2022-11-08 11:39 | Cardiac Procedure Note-CS/ASA ---
Pre-Procedure Note Pre-Op Procedure Note Date of Available H&P: Oct 26, 2022 Date H&P Reviewed: Nov 08, 2022 Time H&P Reviewed: 11:39 History & Physical: H&P Reviewed, Patient Examed, No changes noted Pre-Operative Diagnosis: Claudication Moderate Sedation PreProcedure Time 11:39 ASA Score 3 Airway Lungs Heart ASA score ASA 1: a normal healthy patient ASA 2: a patient with a mild systemic disease (mid diabetes, controlled hypertension, obesity ASA 3: a patient with a severe systemic disease that limits activity (angina, COPD, prior Myocardial infarction) ASA 4: a patient with an incapacitating disease that is a constant threat to life (CHF, renal failure) ASA 5: a moribund patient not expected to survive 24 hrs. (ruptured aneurysm) ASA 6: a declared brain- patient whose organs are being harvested. For emergent operations, add the letter E after the classification Mallampati Classification Grade 3 Sedation Plan Analgesia, Amnesia, Plan communicated to team members, Discussed options with patient/fam, Discussed risks with patient/fam The patient is an appropriate candidate to undergo the planned procedure, sedation, and anesthesia. The patient immediately re-assessed prior to indication. NANCY SILVERMAN MD Nov 08, 2022 11:39
[2022-11-08] MEDS: NS IV 1000 ML 1,000 ML IV SCH ×3 (11:49→20:22)
[2022-11-08 11:54] LABS: MEAN PLATELET VOLUME 10.5 fL (9.0-12.2); WHITE BLOOD COUNT 3.3 10^3/uL (4.3-11.0)
[2022-11-08 12:09] LABS: INR 1.3 (0.8-1.4); PROTHROMBIN TIME PATIENT 16.3 SEC (12.2-14.7)
[2022-11-08 12:10] LABS: ALBUMIN 3.7 GM/DL (3.2-4.5); BILIRUBIN,TOTAL 2.3 MG/DL (0.1-1.0); CREATININE SERUM 1.53 MG/DL (0.60-1.30); TOTAL PROTEIN 8.1 GM/DL (6.4-8.2)
[2022-11-08] MEDS ORDERED: INSU300I3 SQ (12:11)
[2022-11-08] MEDS ORDERED: AMIO200T65 PO (12:11)
[2022-11-08] MEDS ORDERED: HYDR-3923 PO (12:11)
[2022-11-08] MEDS ORDERED: APIX5TAB PO (12:11)
[2022-11-08] MEDS ORDERED: FURO20TA4 PO (12:11)
--- NOTE | 2022-11-08 12:12 | Diagnostic Imaging Report ---
Indication: Peripheral vascular disease, preop. Frontal chest obtained at 11:37 a.m. and compared to 11/27/2018. There is cardiomegaly. There is mild central vascular prominence. There is some right basilar scarring or atelectasis with small right pleural effusion. There is no pneumothorax. A loop recorder over the chest wall is noted Impression: Cardiomegaly with central vascular congestion and some mild right basilar scarring or atelectasis. Minimal right pleural effusion. Dictated by: Dictated on workstation # [id number]
[2022-11-08] MEDS ORDERED: MIDAZOLAM INJ 5 MG/5 ML VIAL ONE (14:04)
[2022-11-08] MEDS ORDERED: fentaNYL INJECTION 100 MCG/2 ML VIAL ONE (14:04)
[2022-11-08 14:08] LABS: CLARITY,URINE SL CLOUDY; COLOR,URINE YELLOW; GLUCOSE, URINE (UA) NEGATIVE (NEGATIVE); KETONES,URINE NEGATIVE (NEGATIVE); NITRITE,URINE NEGATIVE (NEGATIVE); PROTEIN,URINE 2+ (NEGATIVE)
[2022-11-08 14:09] LABS: BACTERIA,URINE NEGATIVE /HPF; BILIRUBIN,URINE 1+ (NEGATIVE); LEUKOCYTE ESTERASE ,URINE NEGATIVE (NEGATIVE)
[2022-11-08] MEDS ORDERED: HEParin 1000 UNIT/ML (10ML VIAL) FOR BOLUS ONE (14:50)
[2022-11-08] MEDS ORDERED: NITRO DRIP 25000 MCG/D5W 250 ML IV ONE (15:30)
[2022-11-08] MEDS ORDERED: PATIENT MAY USE OWN MEDS, ALL PO SCH (15:45)
--- NOTE | 2022-11-08 15:53 | Peripheral Report ---
Peripheral Report Physician (s)/Applications Systems Analyst (s) Physician NANCY SILVERMAN MD Pre-Procedure Diagnosis Pre-Procedure Diagnosis: Claudication Post-Procedure Note Procedure Start Date: Nov 08, 2022 Name of Procedure: Bilateral lower extremity runoff Third order Additional imaging x2 INCUBATOR OPERATOR to the left posterior tibial artery Findings/Procedure Note PROCEDURE NOTE: 82-year-old gentleman with hypertension, hyperlipidemia, diabetes mellitus, ulcer on his lower extremity, scheduled for peripheral angiogram. After explaining the procedure to the patient, all pros and cons were explained, all questions were answered. The patient signed the consent and then he was placed on the cardiac catheterization laboratory. The patient was placed on the cardiac catheterization laboratory. Groin was prepped SL fashion local anesthesia was used. Sheath placed in the right femoral artery, runoff to the right leg was done through the sheath then DSA imaging at the level of the trifurcation was done I advanced a rim catheter to the bifurcation and did runoff to the left lower extremity. Storq wire was advanced and a straight catheter was advanced to the distal SFA/popliteal artery and DSA imaging to the trifurcation was done then using Storq wire the straight catheter was removed and the sheath was exchanged to a 7 Icelandic 65 cm sheath 4000 units of heparin were given I attempted with multiple wire to cross the totally occluded posterior tibial artery, then I used a mini 18 catheter to support command 14 and I was able to advance it Multiple balloon inflation using Turner 3 x 120. Angiogram showed improvement of the total occlusion at the ostium but the artery continues to be totally occluded at the midportion. Reconstructed at the level of the ankle by collaterals from the peroneal artery FINDINGS: Right lower extremity: Right SFA and popliteal artery calcified artery with slow flow nonobstructive disease Right tibial peroneal trunk is patent Anterior tibial artery has severe disease Posterior tibial artery has severe disease Peroneal artery is patent Left lower extremity Heavily calcified left common iliac and common femoral artery Calcified with nonobstructive disease in the left SFA and popliteal artery Severely diseased anterior tibial artery Patent peroneal artery Totally occluded left posterior tibial artery, balloon angioplasty to the ostium of the posterior tibial artery was successful but repeating intervention at the midportion did not reestablish flow. Patient has a long area of total occlusion reconstructed at the ankle level by collaterals from the peroneal artery. CONCLUSIONS: Severe peripheral arterial disease with total occlusion of the anterior tibial and posterior tibial artery bilaterally reconstructed by collaterals from the peroneal artery Balloon angioplasty to the ostium of the left posterior tibial artery with some improvement but the occlusion at the mid and distal posterior tibial artery still present with no flow reconstructed by collaterals from the peroneal artery at the level of the ankle DISCUSSION AND RECOMMENDATIONS: Continue to maximize medical therapy and arrange for vascular surgery evaluation Anesthesia Type: Conscious Sedation Estimated blood loss (mL): 30 ml Contrast Amount: 90 ml Total Radiation Dose: 169 mGy Post-Procedure Diagnosis Post-operative diagnosis: Claudication Peripheral arterial disease Hypertension Hyperlipidemia Diabetes mellitus NANCY SILVERMAN MD Nov 08, 2022 15:53
[2022-11-08] MEDS ORDERED: ASPIRIN 325 MG TABLET ONE (15:57)
[2022-11-08] MEDS ORDERED: CLOPIDOGREL 300 MG TABLET PO ONE (15:57)
[2022-11-08] MEDS: hydrALAZINE 25 MG TABLET PO SCH (20:21)
[2022-11-08] MEDS: APIXABAN 5 MG TABLET PO SCH (20:21)
[2022-11-08] MEDS: PANTOPRAZOLE 40 MG TABLET PO SCH (20:25)
[2022-11-09] MEDS: NS IV 1000 ML 1,000 ML IV SCH ×2 (01:24→06:26)
[2022-11-09 03:53] VITALS: BP 123/57
[2022-11-09 06:05] LABS: HEMOGLOBIN 11.9 g/dL (13.3-17.7)
[2022-11-09 06:07] LABS: MEAN PLATELET VOLUME 10.2 fL (9.0-12.2); WHITE BLOOD COUNT 2.8 10^3/uL (4.3-11.0)
[2022-11-09 06:18] LABS: POTASSIUM 4.4 MMOL/L (3.6-5.0)
[2022-11-09 06:19] LABS: CALCIUM 8.4 MG/DL (8.5-10.1)
[2022-11-09 06:23] LABS: CREATININE SERUM 1.4 MG/DL (0.60-1.30)
[2022-11-09] MEDS ORDERED: PANT40TA52 PO (06:46)
--- NOTE | 2022-11-09 06:47 | Discharge Inst-Post CATH ---
Discharge Inst-CATH/EP Problems Reviewed?: Yes Post Cardiac Cath/EP D/C Inst Follow Up/Plan Appointment with Dr Sharp in 2-4 weeks <b>CARDIAC CATH/EP PROCEDURE DISCHARGE INSTRUCTIONS</b> ACTIVITY * Go Home directly and rest. * Limit activity of the leg (or wrist if it was used) for 7 days including aerobics, swimming, jogging, bicycling, etc. * Restrict stair-climbing for 7 days if possible, if not, climb up with your non-cath leg, then bring together on the same step. * Avoid lifting, pushing, pulling or excessive movement of the affected extremity for 7 days. * Customary sexual activity may be resumed after 2 days-use caution not to use a position that strains or causes pain to the affected extremity. * No driving for 24 hours. * NO SMOKING. * Avoid straining for bowel movements for 7 days. * Gentle walking on level ground is allowed. * Returning to work will depend on the type of procedure and the results. Your doctor will discuss this with you. CALL YOUR DOCTOR FOR ANY OF THE FOLLOWING: *If bleeding from the puncture site occurs- Apply gentle pressure to site with clean cloth and call your doctor or EMS. * If a knot or lump forms under the skin, increases in size, or causes pain. * If bruising appears to be worsening or moving further down your leg instead of disappearing. * Temperature above 101 F. CARE OF YOUR GROIN INCISION; * Bruising or purple discoloration of the skin near the puncture site is common. * You may shower only, no bathtub bathing for 5 days. Be careful to avoid slipping as your leg may feel stiff. * If a closure device was used on your femoral artery, please see the attached guide regarding care of the device and your leg. * Leave dressing on FOR 24 hours. CARE OF YOUR WRIST INCISION; * Bruising or purple discoloration of the skin near the puncture site is common. * You may shower. * DO NOT submerge wrist. * Leave dressing on FOR 24 hours. NANCY SHARP MD Nov 09, 2022 06:47
[2022-11-09 07:46] VITALS: BP 141/67
--- NOTE | 2022-11-09 08:25 | Cardiology Progress Note ---
Subjective Date Seen by Provider: Nov 09, 2022 Time Seen by Provider: 08:23 Subjective/Events-last exam Patient was seen this morning, feeling well, groin is healing well. Complaining of poor balance Objective-Cardiology Exam Last Set of Vital Signs Vital Signs 11/09/22 11/09/22 03:53 07:46 Temp 36.7 Pulse 60 Resp 16 B/P (MAP) 141/67 (91) Pulse Ox 99 O2 Delivery Nasal Cannula O2 Flow Rate 2.00 I&O Intake and Output 11/09/22 00:00 Intake Total 100 ml Output Total 200 ml Balance -100 ml Intake Oral 100 ml Output Urine Total 200 ml Daily Weight Change No General: Alert, Oriented X3, Cooperative HEENT: Atraumatic, PERRLA Neck: Supple, No JVD, No Thyromegaly Lungs: Clear to Auscultation, Normal Air Movement Heart: Regular Rate, Normal S1, Normal S2, No Murmurs Abdomen: Normal Bowel Sounds, Soft, No Tenderness, No Hepatosplenomegaly, No Masses Extremities: No Clubbing, No Cyanosis, No Edema, Normal Pulses, No Tenderness/Swelling Skin: No Rashes, No Breakdown, No Significant Lesion Neuro: Normal Gait, Normal Speech, Strength at 5/5 X4 Ext, Normal Tone, Sensation Intact Psych/Mental Status: Mental Status NL, Mood NL Results Lab Laboratory Tests 11/08/22 11:45 11/09/22 05:36 A/P-Cardiology Admission Diagnosis Claudication Peripheral arterial disease Hypertension Hyperlipidemia Assessment/Plan Claudication, peripheral arterial disease Severe disease below the knee, balloon angioplasty to the posterior tibial art colin, has total occlusion at the mid tibial artery reconstructed by collaterals from the peroneal artery on the left side. Heavily calcified arteries in the SFA bilaterally Conservative management is recommended Hypertension, monitor blood pressure continue current medication Hyperlipidemia, continue with statin Poor balance, recommended evaluating outpatient PT NANCY SILVERMAN MD Nov 09, 2022 08:25
[2022-11-09] MEDS ORDERED: ATOR10TA PO (08:26)
[2022-11-09] MEDS: hydrALAZINE 25 MG TABLET PO SCH (08:40)
[2022-11-09] MEDS: APIXABAN 5 MG TABLET PO SCH (08:40)
[2022-11-09] MEDS: PANTOPRAZOLE 40 MG TABLET PO SCH (08:46)
[2022-11-09] MEDS ORDERED: CLOPIDOGREL 75 MG TABLET PO SCH (09:00)
[2022-11-09] MEDS ORDERED: TOUJEO MAX SQ SCH (09:00)
[2022-11-09] MEDS ORDERED: FUROSEMIDE 20 MG TABLET PO SCH (09:00)
[2022-11-09] MEDS ORDERED: ASPIRIN enteric coated 81MG TABLET PO SCH (09:00)
[2022-11-09] MEDS ORDERED: inSUlin DETERMIR 1 UNIT/0.01 ML (CHARGE PER UNIT) SQ SCH (09:00)
[2022-11-09] MEDS ORDERED: AMIODARONE 200 MG TABLET PO SCH (09:00)
== END 2022-11-09 10:01 | disposition home or self-care (01) ==
LOC: CANPRESDC → CATH 10:51 → CSD 16:04 → CATH 11-09 10:01
PROVIDERS: ATTEND Internal Medicine Cardiovascular Disease
DX: I70.92 Chronic total occlusion of artery of the extremities (principal); E11.51 Type 2 diabetes mellitus with diabetic peripheral angiopathy without gangrene; I10 Essential (primary) hypertension; R26.81 Unsteadiness on feet; I70.203 Unspecified atherosclerosis of native arteries of extremities, bilateral legs; I48.0 Paroxysmal atrial fibrillation; I25.10 Atherosclerotic heart disease of native coronary artery without angina pectoris; I42.8 Other cardiomyopathies; I50.9 Heart failure, unspecified; I08.3 Combined rheumatic disorders of mitral, aortic and tricuspid valves; I27.20 Pulmonary hypertension, unspecified; I49.3 Ventricular premature depolarization; I65.23 Occlusion and stenosis of bilateral carotid arteries; C18.9 Malignant neoplasm of colon, unspecified; G47.30 Sleep apnea, unspecified; E78.2 Mixed hyperlipidemia; Z28.310 Unvaccinated for COVID-19; Z79.01 Long term (current) use of anticoagulants; Z79.4 Long term (current) use of insulin; Z79.899 Other long term (current) drug therapy; Z86.16 Personal history of COVID-19; Z86.73 Personal history of transient ischemic attack (TIA), and cerebral infarction without residual deficits; Z91.199 Patient's noncompliance with other medical treatment and regimen due to unspecified reason
CPT/HCPCS: 37228; 71045; 75716; 80048; 80053; 80061; 81000; 82652; 82947; 85027 ×2; 85347; 85610; 85730; 87081; 93005; C1725; C1760; C1769 ×4; C1887 ×3; C1894 ×2; 36415

== ENCOUNTER 2023-01-03 10:14 | Outpatient (RCR) | payer MEDICARE, OTHER ==
[~2023-01-03 10:14] MED LIST changes: +AMIO200T65 PO; +APIX5TAB PO; +ATOR10TA PO; +FURO20TA4 PO; +HYDR-3923 PO; +PANT40TA52 PO
== END 2023-01-04 | disposition home or self-care (01) ==
LOC: CR 10:14
PROVIDERS: ATTEND Internal Medicine Cardiovascular Disease
DX: Z29.89 Encounter for other specified prophylactic measures (principal); I70.219 Atherosclerosis of native arteries of extremities with intermittent claudication, unspecified extremity
CPT/HCPCS: 93668